=== PATIENT | female | born 1985 | race Caucasian/White ===

== ENCOUNTER → 2017-03-13 | Outpatient (CLI) | payer BC ==
--- NOTE | 2017-03-14 13:37 | MR ---
EXAMINATION TYPE: MR knee RT wo con DATE OF EXAM: 03/13/2017 COMPARISON: NONE HISTORY: Rt. knee pain TECHNIQUE: Multiplanar, multisequence imaging of the right knee is performed without IV contrast. FINDINGS: There is a large knee joint effusion. The anterior and posterior cruciate ligaments are intact. The c ollateral ligaments appear intact. There is a 2.5 cm popliteal cyst. Joint spaces are normal. There i s no sign of a fracture. There is a horizontal area of increased signal within the posterior horn of the medial meniscus that does not extend to the articular surface. There is also similar small area i n the posterior horn lateral meniscus. The other menisci appear intact. Remainder of exam is unremark able. IMPRESSION: Large knee joint effusion and popliteal cyst. No evidence of ligamentous tear. No fracture. Intrasubstance horizontal tear of the posterior horn of the medial meniscus and the late ral meniscus.
== END | disposition home or self-care (01) ==
LOC: RADMRIMAIN 10:17
PROVIDERS: ATTEND Orthopaedic Surgery
DX: S83.241A Other tear of medial meniscus, current injury, right knee, initial encounter (principal); S83.281A Other tear of lateral meniscus, current injury, right knee, initial encounter; M71.21 Synovial cyst of popliteal space [Baker], right knee

== ENCOUNTER → 2017-04-08 | Outpatient (CLI) | payer BC ==
[2017-04-08 09:24] LABS: Basophils % (A) 1 %; CH 31.1; Eosinophils # (A) 0.6 k/uL (0-0.7); Eosinophils % (A) 8 %; HCT 43.6 % (34.0-46.0); HGB 14.3 gm/dL (11.4-16.0); Luc # (Auto) 0.12; Luc % (Auto) 2; Lymphocytes # (A) 2.1 k/uL (1.0-4.8); Lymphocytes % (A) 30 %; MCH 30.2 pg (25.0-35.0); MCHC 32.9 g/dL (31.0-37.0); MCV 91.9 fL (80.0-100.0); Mean Platelet Volume 7.7; Monocytes # (A) 0.4 k/uL (0-1.0); Monocytes % (A) 5 %; Neutrophils # (A) 3.8 k/uL (1.3-7.7); Neutrophils % (A) 55 %; RBC 4.75 m/uL (3.80-5.40); RDW 12.4 % (11.5-15.5); WBC (Perox) 6.93
[2017-04-08 09:40] LABS: Potassium 4.4 mmol/L (3.5-5.1)
== END | disposition home or self-care (01) ==
LOC: LABPAT 09:05
PROVIDERS: ATTEND Orthopaedic Surgery
DX: Z01.812 Encounter for preprocedural laboratory examination (principal); M23.91 Unspecified internal derangement of right knee
CPT/HCPCS: 80051; 81025; 85025

== ENCOUNTER 2017-04-15 07:20 | Day surgery (SDC) | payer BC ==
[2017-04-03 14:36] VITALS: BMI 29.9
--- NOTE | 2017-04-14 15:19 | HP ---
DATE OF ADMISSION: 04/15/2017 Maribell Casey is a 31-year-old patient seen with progressive right knee pain. After having treatment options discussed, she elected to proceed with right knee arthroscopy, consent was obtained. Past medical history is noncontributory. Past surgical history is section, left knee arthroscopy, tonsillectomy. DAILY MEDICATIONS: Ibuprofen. ALLERGIES: None. SOCIAL HISTORY: Patient denies current tobacco use. PHYSICAL EVALUATION OF RIGHT KNEE: Range of motion is 0 to 125 degrees. Tenderness along the medical joint line, tenderness along the lateral joint line. Positive medical Alex's, positive lateral Alex's, ligaments are stable. Hip rotation is without pain. Distal neural vascular exam is intact. Radiographs of the right knee revealed mild osteoarthritis. MRI right knee revealed medial and lateral meniscal tears. IMPRESSION: Internal derangement of the right knee with medical and lateral meniscal tears. PLAN: Right knee arthroscopy with partial meniscectomy and debridement. FAUZIA
[~2017-04-15 07:20] MED LIST: DEXAMETHASONE SOD PHOSPHATE 10 MG/ML 1 ML VIAL IV ONE; HYDROmorphone 1 MG/ML 1 ML SYRINGE IVP PRN; LACTATED RINGERS 1,000 ML IV SCH; LIDOCAINE 1% 20 ML VIAL (10MG/ML) FOR IV START INTRADERMA PRN; MIDAZOLAM 2 MG/2 ML VIAL IV PRN; ONDANSETRON 4 MG/2 ML VIAL IVP ONE; SCOPOLAMINE 1.5MG/72HR PATCH TRANSDERM ONE; ceFAZolin 2 GM in SODIUM CHLORIDE 0.9% 100 ML IVPB ONE
[2017-04-15] MEDS ORDERED: KETOROLAC 30 MG/ML 1 ML VIAL ONE (08:53)
[2017-04-15] MEDS ORDERED: LIDOCAINE 1% INJ 10MG/ML (20 ML MDV) ONE (08:53)
[2017-04-15] MEDS ORDERED: MIDAZOLAM 2 MG/2 ML VIAL ONE (08:53)
[2017-04-15] MEDS ORDERED: fentaNYL (PF) 50 MCG/ML 2 ML AMP ONE (08:53)
[2017-04-15] MEDS ORDERED: PROPOFOL 10 MG/ML 20 ML VIAL IV ONE (08:53)
[2017-04-15] MEDS ORDERED: BUPIVACAIN-EPI 0.25%-1:200,000 30 ML VIAL SQ ONE (09:08)
[2017-04-15 09:47] VITALS: TEMP 97.4
[2017-04-15 09:51] VITALS: RESP 16
--- NOTE | 2017-04-15 09:51 | P.OP ---
Date of Procedure: 04/15/17 Preoperative Diagnosis: Internal derangement right knee Postoperative Diagnosis: 1. Tear medial and lateral meniscus right knee 2. Reactive synovitis medial and suprapatellar compartments right knee Procedure(s) Performed: 1. Arthroscopic partial medial and lateral meniscectomy right knee 2. Arthroscopic partial synovectomy medial and suprapatellar compartments right knee Implants: Anesthesia: GETA Surgeon: Jonn Ceballos Estimated Blood Loss (ml): 5 Pathology: none sent Condition: stable Disposition: PACU Indications for Procedure: 31-year-old patient seen with progressive right knee pain. After treatment options were discussed, he elected to proceed with arthroscopy. Operative Findings: See description of procedure Description of Procedure: Patient was taken to the operative suite. Patient underwent a general anesthetic by the department of anesthesia. Patient was given preoperative antibiotics. The right lower extremity was placed in a well-padded arthroscopic leg bassett. The right leg was prepped and draped in the normal sterile orthopedic fashion. A lateral parapatellar and suprapatellar incision was made. Trochars were inserted. Arthroscopy was initiated. Suprapatellar pouch revealed diffuse thick reactive synovitis. The patellofemoral joint appeared to articulate congruently. There was grade 1 chondromalacia of the patellofemoral joint with no osteochondral tears present. The scope was guided into the medial gutter. There were no loose bodies or plica identified. The scope was then guided into the medial compartment. A medial parapatellar incision was made. Trocar inserted followed by probe. There was a radial tear posterior horn medial meniscus. Reactive synovitis anteriorly. No chondromalacia or loose bodies. A partial medial meniscectomy was performed on a stable tissue. I performed a partial synovectomy. The residual meniscus was found to be stable. Scope and probe were then guided into the intercondylar notch. Cruciates were identified, probed and found to be stable. The scope and probe were then guided into lateral compartment. With some radial tearing in the midbody lateral meniscus. No chondromalacia, loose bodies or synovitis was noted. A partial lateral meniscectomy was performed on a stable tissue. The residual meniscus was found to be stable. The scope was in guided back into the suprapatellar compartment. I introduced a motorized shaver into the suprapatellar compartment. I performed a partial synovectomy. Shaver was removed. I took one more look on the entire knee, no residual debris. Instruments were now removed from the joint. The joint was infiltrated with .25 % Marcaine. Steri-Strips were applied to the portal sites. Sterile dressings were applied. The patient was placed into a JOHNNY hose. No tourniquet was utilized. The patient was awakened, transferred to a bed and taken to recovery stable satisfactory condition.
[2017-04-15] MEDS ORDERED: IBUPROFEN 800 MG TAB PO STA (10:49)
[2017-04-15 11:42] VITALS: BP 138/80; PULSE 75
== END 2017-04-15 11:43 | disposition home or self-care (01) ==
LOC: OR 07:20
PROVIDERS: ATTEND Orthopaedic Surgery
DX: S83.241A Other tear of medial meniscus, current injury, right knee, initial encounter (principal); S83.281A Other tear of lateral meniscus, current injury, right knee, initial encounter; X58.XXXA Exposure to other specified factors, initial encounter; M65.9 Synovitis and tenosynovitis, unspecified; M22.41 Chondromalacia patellae, right knee
CPT/HCPCS: 81025; 29880; J2250; J1100; J0690; J2405; J2001; J3010; J1885; J2704

== ENCOUNTER → 2024-03-02 | Outpatient (CLI) | payer BC ==
--- NOTE | 2024-03-07 14:09 | MM ---
Reason for Exam: Screening (asymptomatic). Baseline mammogram. Patient History: Menarche at age 10. First Full-Term at age 28. Late child-bearing (after 28). Patient has history of breast feeding. Patient used Hormonal Contraceptives for 10 years. Last menstrual period: 02/03/2024 Risk Values: Stacy 5 year model risk: 0.8%. NCI Lifetime model risk: 13.6%. Prior Study Comparison: Patient's first Mammogram. Tissue Density: There are scattered areas of fibroglandular density. Findings: Analyzed By CAD. Right breast: There is no suspicious group of microcalcifications or new suspicious mass. Left breast: There is no suspicious group of microcalcifications or new suspicious mass. Overall Assessment: Negative, BI-RAD 1 Management: Screening Mammogram of both breasts in [address] [facility] will attempt to contact patient to return for supplemental views and ultrasound if indicated. Patient should continue monthly self-breast exams. A clinical breast exam by your physician is recommended on an annual basis. This exam should not preclude additional follow-up of suspicious palpable abnormalities. Note on Stacy scores and lifetime risk: 1. A Stacy score greater than 3% is considered moderate risk. If this is the case, consider specialist referral to assess eligibility for a risk reducing agent. 2. If overall lifetime risk for the development of breast cancer is 20% or higher, the patient may qualify for future screening with alternating mammogram and breast MRI. Electronically signed and approved by: Eddie Segal DO
== END | disposition home or self-care (01) ==
LOC: RADMAMWWP 14:55
PROVIDERS: ATTEND Family Medicine
DX: Z12.31 Encounter for screening mammogram for malignant neoplasm of breast (principal); Z92.0 Personal history of contraception
CPT/HCPCS: 77063; 77067